=== PATIENT | female | born 1990 | race American Indian/Alaskan Native ===

== ENCOUNTER 2016-08-11 09:43 | Emergency (ER) | payer SELFPAY ==
[2016-08-11 10:32] VITALS: BP 145/98
--- NOTE | 2016-08-11 12:25 | Emergency Department Report ---
- General Chief Complaint: Upper Respiratory Infection Stated Complaint: FLU SX Time Seen by Provider: 08/11/16 12:14 Source: patient Mode of arrival: Ambulatory Limitations: No Limitations - History of Present Illness Initial Comments: 25-year-old female past medical history asthma presents with complaint of cough and runny nose fevers chills body aches 3 days. Slightly decreased appetite but tolerating by mouth fluid and food. Patient states she has had multiple sick contacts at work in the last week. Denies any productive cough. Denies any chest pain palpitations no significant shortness of breath no current reports of abdominal pain no diarrhea no dysuria. MD Complaint: fever, cough, sore throat, rhinorrhea, nasal congestion - Related Data Home Medications Medication Instructions Recorded Confirmed Last Taken ARIPiprazole [Abilify] 10 mg PO DAILY 08/18/13 08/18/13 08/10/13 Previous Rx's Medication Instructions Recorded Last Taken Type Fluconazole [Diflucan] 150 mg PO QDAY #3 tablet 08/18/13 Unknown Rx ALBUTEROL Inhaler [ProAir HFA 2 puff IH QID PRN #1 inhalation 08/11/16 Unknown Rx Inhaler] Ibuprofen [Motrin] 600 mg PO Q8H PRN #30 tablet 08/11/16 Unknown Rx Phenylephrine/Dm/Acetaminop/GG 10 ml PO Q6H PRN #1 bottle 08/11/16 Unknown Rx [Mucinex Yszd-Pfr-Qlxvbatlhc Lq] Allergies Allergy/AdvReac Type Severity Reaction Status Date / Time iodine Allergy Hives Verified 08/18/13 05:32 shellfish derived Allergy Hives Verified 08/18/13 05:32 ED Review of Systems ROS: Stated complaint: FLU SX Other details as noted in HPI ED Past Medical Hx - Past Medical History Hx Asthma: Yes - Surgical History Additional Surgical History: l) knee surgery - Social History Smoking Status: Current Every Day Smoker Substance Use Type: None - Medications Home Medications: Home Medications Medication Instructions Recorded Confirmed Last Taken Type ARIPiprazole [Abilify] 10 mg PO DAILY 08/18/13 08/18/13 08/10/13 History Fluconazole [Diflucan] 150 mg PO QDAY #3 tablet 08/18/13 Unknown Rx ALBUTEROL Inhaler [ProAir HFA 2 puff IH QID PRN #1 inhalation 08/11/16 Unknown Rx Inhaler] Ibuprofen [Motrin] 600 mg PO Q8H PRN #30 tablet 08/11/16 Unknown Rx Phenylephrine/Dm/Acetaminop/GG 10 ml PO Q6H PRN #1 bottle 08/11/16 Unknown Rx [Mucinex Pnrk-Dcj-Ijfrtozlbw Lq] ED Physical Exam - General Limitations: No Limitations General appearance: alert, in no apparent distress - Head Head exam: Present: atraumatic, normocephalic - Eye Eye exam: Present: normal appearance, PERRL, EOMI - ENT ENT exam: Present: mucous membranes moist - Neck Neck exam: Present: normal inspection - Respiratory Respiratory exam: Present: normal lung sounds bilaterally. Absent: respiratory distress - Cardiovascular Cardiovascular Exam: Present: regular rate, normal rhythm. Absent: systolic murmur, diastolic murmur, rubs, gallop - GI/Abdominal GI/Abdominal exam: Present: soft, normal bowel sounds - Extremities Exam Extremities exam: Present: normal inspection - Back Exam Back exam: Present: normal inspection - Neurological Exam Neurological exam: Present: alert, oriented X3 - Psychiatric Psychiatric exam: Present: normal affect, normal mood - Skin Skin exam: Present: warm, dry, intact, normal color. Absent: rash ED Course Vital Signs 08/11/16 10:27 Temperature 99.0 F Pulse Rate 80 Respiratory 20 Rate Blood Pressure 145/98 O2 Sat by Pulse 100 Oximetry ED Medical Decision Making - Medical Decision Making A/P: Flulike illness and viral syndrome 1-patient's symptoms consistent with influenza-like illness, bodyaches sore throat and runny nose and subjective fever chills decreased appetite dry cough 2-will treat patient empirically and symptomatically 3-follow-up with with primary care doctor 4-patient's vital signs stable, able to tolerate by mouth 5-I advised patient to return to the ED for any dyspnea fevers above 101 consistently despite Motrin and Tylenol use, inability to tolerate by mouth Critical care attestation.: If time is entered above; I have spent that time in minutes in the direct care of this critically ill patient, excluding procedure time. ED Disposition Clinical Impression: Flu-like symptoms Disposition: DISCHARGED TO HOME OR SELFCARE Is pt being admited?: No Does the pt Need Aspirin: No Condition: Stable Instructions: Viral Syndrome (ED), Influenza (ED) Prescriptions: ALBUTEROL Inhaler [ProAir HFA Inhaler] 2 puff IH QID PRN #1 inhalation PRN Reason: Shortness Of Breath Ibuprofen [Motrin] 600 mg PO Q8H PRN #30 tablet PRN Reason: Pain Phenylephrine/Dm/Acetaminop/GG [Mucinex Imaj-Ber-Mgdwrbsyos Lq] 10 ml PO Q6H PRN #1 bottle PRN Reason: Cough Referrals: PRIMARY CAREMD [Primary Care Provider] - 3-5 Days LACIE ESTES MD [Staff Physician] - 3-5 Days [facility] [Outside] - 3-5 Days Forms: Work/School Release Form(ED) Time of Disposition: 12:35
[2016-08-11] MEDS ORDERED: MOTRIN PO ONE (12:28)
== END 2016-08-11 13:07 | disposition home or self-care (01) ==
LOC: ED 09:43
DX: R05 Cough (principal); M79.1 Myalgia; R09.89 Other specified symptoms and signs involving the circulatory and respiratory systems; J45.909 Unspecified asthma, uncomplicated; F17.200 Nicotine dependence, unspecified, uncomplicated; Z91.013 Allergy to seafood
CPT/HCPCS: 99282

== ENCOUNTER 2017-07-01 10:54 | Emergency (ER) | payer OTHER ==
[2017-07-01 12:32] VITALS: BP 110/77
--- NOTE | 2017-07-01 13:14 | Emergency Department Report ---
ED Dysuria HPI - HPI Chief Complaint: Vaginal Bleeding Stated Complaint: vag dc., corona Time Seen by Provider: 07/01/17 12:55 Duration: 5 Days Severity: Mild Symptoms: Dysuria: No, Frequency: No, Suprapubic Pain: No, Flank Pain: No, Fever : No, Hematuria: No, Abdominal Pain: No, Previous UTI's: No Other History: not concerned for std. she has irreg periods and is concerned she is preg. asking for blood hcg and not urine. lmp 12-17 ED Review of Systems ROS: Stated complaint: ABDOMINAL PAIN/VAGINAL DISCHARGE Other details as noted in HPI Comment: All other systems reviewed and negative Gastrointestinal: denies: abdominal pain, nausea, vomiting, diarrhea, constipation, hematemesis, melena, hematochezia Genitourinary: discharge, abnormal menses. denies: urgency, dysuria, frequency , hematuria, dyspareunia Neurological: headache (states she feels just like she did when ) ED Past Medical Hx - Past Medical History Hx Asthma: Yes - Surgical History Additional Surgical History: l) knee surgery - Social History Smoking Status: Current Every Day Smoker Substance Use Type: None - Medications Home Medications: Home Medications Medication Instructions Recorded Confirmed Last Taken Type ARIPiprazole [Abilify] 10 mg PO DAILY 08/18/13 08/18/13 08/10/13 History Fluconazole [Diflucan] 150 mg PO QDAY #3 tablet 08/18/13 Unknown Rx ALBUTEROL Inhaler [ProAir HFA 2 puff IH QID PRN #1 inhalation 08/11/16 Unknown Rx Inhaler] Ibuprofen [Motrin] 600 mg PO Q8H PRN #30 tablet 08/11/16 Unknown Rx Phenylephrine/Dm/Acetaminop/GG 10 ml PO Q6H PRN #1 bottle 08/11/16 Unknown Rx [Mucinex Gwfu-Iug-Ktvytgpdzn Lq] Dysuria Exam - Exam General: Vital signs noted. No distress. Alert and acting appropriately. abd snt no pain to light or deep palp no dysuria no cva tenderness no concern for std taking po vss no distress Exam: Yes Moist Mucous Membranes, No CVA Tenderness, No Abdominal Tenderness, No Rigidity or Guarding ED Course Vital Signs 07/01/17 12:24 Temperature 98.7 F Pulse Rate 69 Respiratory 16 Rate Blood Pressure 110/77 Blood Pressure 110/77 [Right] O2 Sat by Pulse 100 Oximetry - Reevaluation(s) Reevaluation #1: 07/01/17 14:51 labs noted discussed w pt she is again stating not worried about std wanted to be sure not preg will see ob outpt vss non ill non toxic taking po ambulatory no pain no fever ED Medical Decision Making - Lab Data Result diagrams: 07/01/17 13:40 - Medical Decision Making see note - Differential Diagnosis uti v std ro preg Critical care attestation.: If time is entered above; I have spent that time in minutes in the direct care of this critically ill patient, excluding procedure time. ED Disposition Clinical Impression: Concern about unwanted without diagnosis Disposition: DC-01 TO HOME OR SELFCARE Is pt being admited?: No Does the pt Need Aspirin: No Condition: Stable Instructions: Menstruation (ED), Menorrhagia (ED) Additional Instructions: follow up with OBGYN as we discussed your urine and blood work was good today- not Referrals: BRENDAN GARCIA MD [Staff Physician] - 3-5 Days [facility] [Outside] - 3-5 Days [facility] [Outside] - 3-5 Days [facility] [Outside] - 3-5 Days [facility] [Outside] - 3-5 Days Time of Disposition: 14:53
[2017-07-01 13:23] LABS: Bilirubin,Urine NEG (Negative); Blood,Urine NEG (Negative); Color,Urine Straw (Yellow); Mucus,Urine FEW /HPF; Nitrite,Urine NEG (Negative); Protein,Urine <15 mg/dL mg/dL (Negative); Urobilinogen,Urine < 2.0 mg/dL (<2.0)
[2017-07-01 14:21] LABS: HCG Qualitative,Urine Negative (Negative)
[2017-07-01 14:38] LABS: Basophils # (Auto) 0.1 K/mm3 (0.0-0.1); Basophils % (Auto) 0.6 % (0.0-1.8); Eosinophils # (Auto) 0.3 K/mm3 (0.0-0.4); Eosinophils % (Auto) 2.6 % (0.0-4.3); Hematocrit 40.9 % (30.3-42.9); Hemoglobin 13.1 gm/dl (10.1-14.3); Lymphocytes # (Auto) 3.1 K/mm3 (1.2-5.4); Lymphocytes % (Auto) 30.3 % (13.4-35.0); Mean Corpuscular HGB Conc 32 % (30-34); Mean Corpuscular Volume 80 fl (79-97); Monocytes # (Auto) 0.6 K/mm3 (0.0-0.8); Monocytes % (Auto) 6.1 % (0.0-7.3); Platelet Count 265 K/mm3 (140-440); Red Blood Count 5.11 M/mm3 (3.65-5.03); Red Cell Distribution Width 15.9 % (13.2-15.2)
[2017-07-01 14:42] LABS: Mean Corpuscular Hemoglobin 26 pg (28-32)
[2017-07-01 14:57] LABS: Alanine Aminotransferase 14 units/L (7-56); Albumin 3.9 g/dL (3.9-5); BUN/Creatinine Ratio 20; Blood Urea Nitrogen 10 mg/dL (7-17); Calcium 9.2 mg/dL (8.4-10.2); Hemolysis Index 13
== END 2017-07-01 15:07 | disposition home or self-care (01) ==
LOC: ED 10:54
DX: N93.9 Abnormal uterine and vaginal bleeding, unspecified (principal)
CPT/HCPCS: 36415; 80053; 81001; 81025; 84702; 85025; 99283

== ENCOUNTER 2017-07-30 10:19 | Emergency (ER) | payer SELFPAY ==
[2017-07-30 11:11] VITALS: BP 128/81
--- NOTE | 2017-07-30 12:46 | Emergency Department Report ---
Chief Complaint: Vaginal Bleeding Stated Complaint: VAGINAL BLEEDING - HPI History of Present Illness: 26-year-old female presents with vaginal bleeding for one month. Vaginal bleeding began with spotting in May. On July 07 she received first injection of Depo-Provera. Since that time she's had severe heavy bleeding. She denies pain. She denies lightheadedness. She is quite frustrated with the amount of bleeding. - Exam Vital Signs: Vital Signs 07/30/17 11:08 Temperature 98.9 F Pulse Rate 68 Respiratory 18 Rate Blood Pressure 128/81 O2 Sat by Pulse 100 Oximetry MSE screening note: Focused history and physical exam performed. Due to findings the following was ordered: ED Disposition for MSE Condition: Stable Referrals: PRIMARY CARE, [Primary Care Provider] - 3-5 Days
--- NOTE | 2017-07-30 12:51 | Emergency Department Report ---
ED Female HPI - General Chief complaint: Vaginal Bleeding Stated complaint: VAGINAL BLEEDING Source: patient Mode of arrival: Ambulatory Limitations: No Limitations - History of Present Illness Initial comments: Ms. Shepherd presents with 1 month of vaginal spotting and bleeding. On July 07 she received an injection of Depo-Provera. Since that time the bleeding has increased. She denies pain. She denies lightheadedness. She denies any other complaints. She is followed by a clinic. MD Complaint: vaginal bleeding -: Gradual, month(s) - Related Data Home Medications Medication Instructions Recorded Confirmed Last Taken ARIPiprazole [Abilify] 10 mg PO DAILY 08/18/13 08/18/13 08/10/13 Previous Rx's Medication Instructions Recorded Last Taken Type Fluconazole [Diflucan] 150 mg PO QDAY #3 tablet 08/18/13 Unknown Rx ALBUTEROL Inhaler [ProAir HFA 2 puff IH QID PRN #1 inhalation 08/11/16 Unknown Rx Inhaler] Ibuprofen [Motrin] 600 mg PO Q8H PRN #30 tablet 08/11/16 Unknown Rx Phenylephrine/Dm/Acetaminop/GG 10 ml PO Q6H PRN #1 bottle 08/11/16 Unknown Rx [Mucinex Zgfy-Ljq-Oykpjmfzkp Lq] Allergies Allergy/AdvReac Type Severity Reaction Status Date / Time iodine Allergy Hives Verified 08/18/13 05:32 shellfish derived Allergy Hives Verified 08/18/13 05:32 ED Review of Systems ROS: Stated complaint: VAGINAL BLEEDING Other details as noted in HPI Comment: All other systems reviewed and negative Respiratory: denies: cough Cardiovascular: denies: chest pain ED Past Medical Hx - Past Medical History Hx Asthma: Yes - Surgical History Additional Surgical History: l) knee surgery - Social History Smoking Status: Never Smoker Substance Use Type: None - Medications Home Medications: Home Medications Medication Instructions Recorded Confirmed Last Taken Type ARIPiprazole [Abilify] 10 mg PO DAILY 08/18/13 08/18/13 08/10/13 History Fluconazole [Diflucan] 150 mg PO QDAY #3 tablet 08/18/13 Unknown Rx ALBUTEROL Inhaler [ProAir HFA 2 puff IH QID PRN #1 inhalation 08/11/16 Unknown Rx Inhaler] Ibuprofen [Motrin] 600 mg PO Q8H PRN #30 tablet 08/11/16 Unknown Rx Phenylephrine/Dm/Acetaminop/GG 10 ml PO Q6H PRN #1 bottle 08/11/16 Unknown Rx [Mucinex Ndys-Ezz-Xerukgsybg Lq] ED Physical Exam - General Limitations: No Limitations General appearance: alert, in no apparent distress - Head Head exam: Present: atraumatic, normocephalic - Eye Eye exam: Present: normal appearance - ENT ENT exam: Present: normal orophraynx, mucous membranes moist - Neck Neck exam: Present: normal inspection - Respiratory Respiratory exam: Present: normal lung sounds bilaterally. Absent: respiratory distress, wheezes, rales, rhonchi - Cardiovascular Cardiovascular Exam: Present: regular rate, normal rhythm, normal heart sounds. Absent: bradycardia, tachycardia, systolic murmur, diastolic murmur, rubs, gallop - GI/Abdominal GI/Abdominal exam: Present: soft, normal bowel sounds. Absent: distended, tenderness, guarding, rebound - Extremities Exam Extremities exam: Present: normal inspection, full ROM - Back Exam Back exam: Present: normal inspection - Neurological Exam Neurological exam: Present: alert, oriented X3 - Psychiatric Psychiatric exam: Present: normal affect, normal mood - Skin Skin exam: Present: warm, dry, intact, normal color. Absent: rash ED Course Vital Signs 07/30/17 11:08 Temperature 98.9 F Pulse Rate 68 Respiratory 18 Rate Blood Pressure 128/81 O2 Sat by Pulse 100 Oximetry ED Medical Decision Making - Medical Decision Making Ms. Shepherd presents with DUB. She politely declined labs or further w/u. She desires work note. She has appropriate f/u. She is o/w symptom free. Critical care attestation.: If time is entered above; I have spent that time in minutes in the direct care of this critically ill patient, excluding procedure time. ED Disposition Clinical Impression: DUB (dysfunctional uterine bleeding) Disposition: DC-01 TO HOME OR SELFCARE Is pt being admited?: No Does the pt Need Aspirin: No Condition: Stable Referrals: PRIMARY CARE, [Primary Care Provider] - 7-10 days Time of Disposition: 12:51
== END 2017-07-30 13:05 | disposition home or self-care (01) ==
LOC: ED 10:19
DX: N93.8 Other specified abnormal uterine and vaginal bleeding (principal); J45.909 Unspecified asthma, uncomplicated; Z91.041 Radiographic dye allergy status; Z91.013 Allergy to seafood
CPT/HCPCS: 99282